=== PATIENT | female | born 1985 | race Asian ===

== ENCOUNTER 2016-11-16 16:25 | Emergency (ER) | payer SELFPAY ==
[~2016-11-16] VITALS: Ht 157.5 cm; Wt 100.0 kg
[~2016-11-16 16:25] MED LIST: PRENTAB72 PO
[2016-11-16 16:27] VITALS: BP 139/80; PULSE 119; RESP 15; TEMP 98.4; O2SAT 98
--- NOTE | 2016-11-16 19:27 | PD ---
HPI Chief Complaint: Cold / Flu Symptoms Time Seen by Provider: 19:20 Travel History International Travel<30 days: No Contact w/Intl Traveler<30days: No Traveled to known affect area: No History of Present Illness HPI Examined in the presence of a nurse. 31-year-old female presents with cough, sore throat, congestion, fevers, nausea and vomiting. Symptoms started 5 days ago. It hurts to swallow. The cough is nonproductive. Temperature has been as high as 101. Denies dysuria, flank pain, abdominal pain, diarrhea, rash, recent travel. She reports that a coworker has similar symptoms. She is concerned that she may have strep throat. She has no other complaints at this time. [facility] Past Medical History Asthma: Yes Bipolar Disorder: Yes Diminished Hearing: No ?: Not LMP: SEP 2016 : 3 Para: 0 Miscarriage: 1 : 1 Past Surgical History Surgical History: No Previous Surgery Social History Alcohol Use: No Tobacco Use: Yes Substance Use: No Allergies-Medications (Allergen,Severity, Reaction): Coded Allergies: No Known Allergies (Verified , 02/21/13) Reported Meds & Prescriptions Reported Meds & Active Scripts Active Zofran (Ondansetron HCl) 4 Mg Tab 4 Mg PO Q6HR PRN Tessalon Perles (Benzonatate) 100 Mg Cap 200 Mg PO TID PRN Flonase Allergy Relief Children Nasal [place] (Fluticasone Nasal [place]) 50 Mcg/ Act [place] 2 [place] EACH NARE DAILY 10 Days 50 mcg/spray Augmentin (Amoxicillin-Clavulanate) 875-125 mg Tab 875 Mg PO BID 10 Days not for use in CrCl <30 ml/min. Review of Systems Except as stated in HPI: all other systems reviewed are Neg Physical Exam Narrative GENERAL: Well-developed well-nourished female in no acute distress, dry cough during initial examination. SKIN: Warm and dry. HEAD: Atraumatic. Normocephalic. EYES: Pupils equal and round. No scleral icterus. No injection or drainage. ENT: No nasal bleeding or discharge. Mucous membranes pink and moist. No oral pharyngeal erythema or exudate. Uvula midline with no mass effect. NECK: Trachea midline. No JVD. No lymphadenopathy. CARDIOVASCULAR: Regular rate and rhythm. No murmur appreciated. RESPIRATORY: No accessory muscle use. Clear to auscultation. Breath sounds equal bilaterally. GASTROINTESTINAL: Abdomen soft, non-tender, nondistended. Hepatic and splenic margins not palpable. MUSCULOSKELETAL: No obvious deformities. NEUROLOGICAL: Awake and alert. No obvious cranial nerve deficits. Motor grossly within normal limits. Normal speech. PSYCHIATRIC: Appropriate mood and affect; insight and judgment normal. Data Data Last Documented VS Vital Signs Date Time Temp Pulse Resp B/P Pulse Ox O2 Delivery O2 Flow Rate FiO2 11/16/16 16:27 98.4 119 15 139/80 98 Orders Influenzae A/B Antigen (11/16/16 19:24) Chest, Single Ap (11/16/16 ) Group A Rapid Strep Screen (11/16/16 19:24) Ed Urine Pregnancytest Poc (11/16/16 19:24) Ondansetron Odt (Zofran Odt) (11/16/16 19:30) Acetaminophen (Tylenol) (11/16/16 19:30) Strep Culture (Group A) (11/16/16 19:29) MDM Medical Decision Making Medical Screen Exam Complete: Yes Emergency Medical Condition: Yes Medical Record Reviewed: Yes Differential Diagnosis Influenza, bronchitis, pneumonia, pharyngitis Narrative Course 31-year-old female with cough, congestion, fevers, sore throat, nausea and vomiting for 5 days. She appears well. Her abdomen is soft and nontender. She does not appear dehydrated. Plan is for rapid strep screen, influenza antigen, chest x-ray, urine test. Tylenol and Zofran administered. The patient's imaging studies, rapid strep screen and influenza antigen test been reviewed. Negative rapid strep, influenza antigen, no evidence of consolidated pneumonia. Negative urine test. Upon reexamination her heart rate is 85, she feels somewhat better. She clearly has a lot of pressure in her maxillary and ethmoid sinuses and her symptoms are consistent with sinusitis. Therefore the patient will be discharged with Flonase, Tessalon, Augmentin, Zofran. She will be given a note for work tomorrow. She is stable for discharge. Diagnosis Primary Impression: Sinusitis Qualified Code: J01.90 - Acute non-recurrent sinusitis, unspecified location Departure Forms: Tests/Procedures, Work Release Enter return to work date: Nov 19, 2016 Additional Instructions: Stay well-hydrated and well-nourished, get plenty rest. Medication as prescribed. Follow up primary care physician as needed and return for new or worsening symptoms. Med/Other Pt SpecificInfo: Prescription(s) given Scripts Ondansetron (Zofran)4 Mg Tab4 Mg PO Q6HR PRN (NAUSEA OR VOMITING) #15 TAB Ref 0 Prov:Atilio Alfaro MD 11/16/16 Benzonatate (Tessalon Perles)100 Mg Dix343 Mg PO TID PRN (COUGH) #30 CAP Ref 0 Prov:Atilio Alfaro MD 11/16/16 Fluticasone Nasal [place] (Flonase Allergy Relief Children Nasal [place])50 Mcg/Act Spray2 [place] EACH NARE DAILY 10 Days Ref 0 50 mcg/spray Prov:Atilio Alfaro MD 11/16/16 Amoxicillin-Clavulanate (Augmentin)875-125 mg Suc306 Mg PO BID 10 Days Ref 0 not for use in CrCl <30 ml/min. Prov:Atilio Alfaro MD 11/16/16 Disposition: 01 DISCHARGE HOME Condition: Stable Oren Walker Nov 16, 2016 19:27
[2016-11-16] MEDS ORDERED: ONDANSETRON ODT 4 MG TAB PO ONE (19:30)
[2016-11-16] MEDS ORDERED: ACETAMINOPHEN 325 MG TAB PO ONE (19:30)
[2016-11-16] MEDS ORDERED: AUGM875T PO (20:19)
[2016-11-16] MEDS ORDERED: ZOFR4TAB PO (20:19)
[2016-11-16] MEDS ORDERED: FLUT1SPR9 EACH NARE (20:19)
[2016-11-16] MEDS ORDERED: BENZ100 PO (20:19)
--- NOTE | 2016-11-16 21:17 | RADRPT ---
EXAM DATE/TIME: 11/16/2016 19:44 [facility] COMPARISON: No previous studies available for comparison. INDICATIONS : Cough and fever. MEDICAL HISTORY : None. SURGICAL HISTORY : None. ENCOUNTER: Initial ACUITY: 1 day PAIN SCORE: 0/10 LOCATION: Bilateral chest FINDINGS: A single view of the chest demonstrates the lungs to be symmetrically aerated without evidence of mas s, infiltrate or effusion. The cardiomediastinal contours are unremarkable. Osseous structures are intact. CONCLUSION: No acute disease. Rolando Benton MD on November 16, 2016 at 21:15 Board Certified Radiologist. This report was verified electronically.
== END 2016-11-16 20:58 | disposition home or self-care (01) ==
LOC: NETRI 16:25
DX: J01.90 Acute sinusitis, unspecified (principal); Z72.0 Tobacco use
CPT/HCPCS: 71010; 84703; 87081; 87804; 87880; 99283

== ENCOUNTER 2016-12-23 09:55 | Emergency (ER) | payer SELFPAY ==
[~2016-12-23] VITALS: Ht 157.5 cm; Wt 75.0 kg
[~2016-12-23 09:55] MED LIST changes: +AUGM875T PO; +BENZ100 PO; +FLUT1SPR9 EACH NARE; -PRENTAB72 PO; +ZOFR4TAB PO
[2016-12-23 09:57] VITALS: BP 134/91; PULSE 81; RESP 17; TEMP 98.2; O2SAT 100
--- NOTE | 2016-12-23 10:17 | PD ---
HPI . right great toe ingrown toe nail Chief Complaint: Injury Time Seen by Provider: 10:11 Travel History International Travel<30 days: No Contact w/Intl Traveler<30days: No Traveled to known affect area: No History of Present Illness HPI 31 yr old female here with c/o ingrown toe nail causing her pain. She has had issues for 2 years. She knows that she needs to see a tin can feeder, but here requesting something for pain control. There is no evidence of infection. She denies any fever or chills. PFSH Past Medical History Asthma: Yes Bipolar Disorder: Yes Diminished Hearing: No ?: Not : 3 Para: 0 Miscarriage: 1 : 1 Social History Alcohol Use: No Tobacco Use: Yes Substance Use: No Allergies-Medications (Allergen,Severity, Reaction): Coded Allergies: No Known Allergies (Verified , 12/23/16) Reported Meds & Prescriptions Reported Meds & Active Scripts Active No Active Prescriptions or Reported Medications Review of Systems General / Constitutional: No: Fever Eyes: No: Visual changes HENT: No: Headaches Cardiovascular: No: Chest Pain or Discomfort Respiratory: No: Shortness of Breath Gastrointestinal: No: Abdominal Pain Genitourinary: No: Dysuria Musculoskeletal: No: Pain Skin: Positive Other (b/l great toe ingrown toe nail), No Rash Neurologic: No: Weakness Psychiatric: No: Depression Endocrine: No: Polydipsia Hematologic/Lymphatic: No: Easy Bruising Physical Exam Narrative GENERAL: AAO x 3, no acute distress, Well-nourished, well-developed patient. SKIN: Warm and dry. No visible rashes or bruising. b/l great toe with ingrown toenails without evidence of infection. These nails will have to be removed completely. HEAD: Normocephalic and atraumatic. EYES: No scleral icterus. No injection or drainage. ENT: No nasal drainage noted. Mucous membranes pink. Airway patent. NECK: Supple, trachea midline. No JVD. CARDIOVASCULAR: Regular rate and rhythm without murmurs, gallops, or rubs. RESPIRATORY: Breath sounds equal bilaterally. No accessory muscle use. No rhonchi or rales. GASTROINTESTINAL: Abdomen soft, non-tender, nondistended. EXTREMITIES: No cyanosis or edema. BACK: Nontender without obvious deformity. No CVA tenderness. PSYCH: AAO x 3, normal affect. Data Data Last Documented VS Vital Signs Date Time Temp Pulse Resp B/P Pulse Ox O2 Delivery O2 Flow Rate FiO2 12/23/16 10:09 Room Air 12/23/16 09:57 98.2 81 17 134/91 100 MDM Medical Decision Making Medical Screen Exam Complete: Yes Emergency Medical Condition: No Medical Record Reviewed: Yes Differential Diagnosis ingrown toenail, less likely paronychia, less likely cellulitis Narrative Course 31 yr old female here with c/o ingrown toe nail causing her pain. She has had issues for 2 years. She knows that she needs to see a tin can feeder, but here requesting something for pain control. There is no evidence of infection. She denies any fever or chills. A medical screening exam was performed: At the time of evaluation the presenting medical condition was determined not to be of an emergent nature. The patient was given the option of receiving additional care, but declined. Patient was given options for additional community resources from which to obtain care. The Patient Has Been advised to seek medical attention for their presenting complaint. The patient has been advised to return to the ER at any time if an emergent condition develops. Diagnosis Primary Impression: Encounter for medical screening examination Scripts No Active Prescriptions or Reported Meds Condition: Stable Mary Rasmussen Dec 23, 2016 10:16
== END 2016-12-23 10:24 | disposition left against medical advice (07) ==
LOC: NEPB 09:55
DX: L60.0 Ingrowing nail (principal)
CPT/HCPCS: 99281